=== PATIENT | female | born 2000 | race Caucasian/White ===

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

== ENCOUNTER 2021-03-30 18:40 | Emergency (ER) | payer OTHER ==
[~2021-03-30] VITALS: Ht 160 cm; Wt 50.8 kg
[2021-03-30] MEDS ORDERED: FLONASE ALLERG9.9 ML NASAL (20:55)
[2021-03-30] MEDS ORDERED: ZITHROMAX TRI-500 MG PO (20:55)
== END 2021-03-30 21:11 | disposition home or self-care (01) ==
LOC: ER 18:40 → EMR PED 18:40
DX: R51.9 Headache, unspecified (principal); R07.89 Other chest pain; R04.0 Epistaxis; Z11.52 Encounter for screening for COVID-19

== ENCOUNTER → 2023-03-07 | Emergency (ER) | payer OTHER ==
[~2023-03-07] VITALS: Ht 160 cm; Wt 50.3 kg
[~2023-03-07] MED LIST changes: +ACID REDUCER20 M1; +FLONASE ALLERG9.9 ML NASAL; +ZITHROMAX TRI-500 MG PO
== END | disposition home or self-care (01) ==
LOC: ER 12:41
DX: R42 Dizziness and giddiness (principal); R53.81 Other malaise

== ENCOUNTER 2023-08-10 01:01 | Emergency (ER) | payer OTHER ==
[~2023-08-10] VITALS: Ht 160 cm; Wt 49.4 kg
[2023-08-10 03:27] LABS: HEMOGLOBIN 12.6 g/dL (12.0-15.00); MEAN CELL VOLUME 77.3 fL (80.00-100.00); MEAN CORPUSCULAR HEMOGLOBIN 25.6 pg (27.00-32.0); MEAN CORPUSCULAR HGB CONC 33.1 g/dl (32.0-36.0); PLATELET COUNT 181 K/uL (150-450); RED BLOOD COUNT 4.92 M/uL (4.00-6.00)
[2023-08-10 03:50] LABS: CALCIUM 8.8 mg/dL (8.5-10.1); CREATININE SERUM 0.84 mg/dL (0.55-1.02); GFR 84.78; POTASSIUM 3.59 mEq/L (3.5-5.1)
== END 2023-08-10 05:53 | disposition home or self-care (01) ==
LOC: ER 01:01
DX: K52.9 Noninfective gastroenteritis and colitis, unspecified (principal)